=== PATIENT | female | born 1960 | race Caucasian/White ===

== ENCOUNTER 2020-11-25 10:03 | Emergency (ER) | payer OTHER ==
[2020-11-25] MEDS ORDERED: Sodium Chloride 0.9% 10 ML Syringe FLUSH PRN ×2 (10:58→11:34)
[2020-11-25] MEDS ORDERED: Ondansetron 4 MG/2 ML SDV IVPUSH ONE (10:59)
[2020-11-25] MEDS ORDERED: Lactated Ringers 1,000 ML IV SCH (11:00)
--- NOTE | 2020-11-25 11:03 | EDM.PDOC ---
ED HPI GENERAL MEDICAL PROBLEM - General Chief Complaint: Genitourinary Problem Stated Complaint: UTI Time Seen by Provider: 11/25/20 10:51 Source of Information: Reports: Patient, Provider, RN Notes Reviewed History Limitations: Reports: No Limitations - History of Present Illness INITIAL COMMENTS - FREE TEXT/NARRATIVE: 60-year-old female sent from [facility] in [place] presents emergency department day with increasing abdominal pain. She has a complex history of recent urinary tract infection over the last month initially diagnosed with UTI started on amoxicillin 7-day course while in [place]. Did not get good resolution with that was started on ciprofloxacin 10-day course. [place]. She states during course of ciprofloxacin started developing severe diarrhea reported to clinic request to be tested for C. difficile which she was positive started on vancomycin she is almost completed the course of vancomycin 2 doses remaining. Over the last 24 hours her urinary symptoms have increased as well as the diarrhea. Went to the clinic today urinalysis at that time was positive for nitrates suspicious for ongoing urinary tract infection. She is also developed abdominal pain right upper quadrant right flank area mainly over the last 24 hours does have nausea no fevers no shortness of breath or chest pain - Related Data Allergies Allergy/AdvReac Type Severity Reaction Status Date / Time codeine Allergy Nausea and Verified 11/25/20 10:28 Vomiting Home Meds: Home Meds Lactobacillus 3/Fos/Pantethine [Probiotic & Acidophilus] 1 tab PO DAILY 11/25/20 [History] Omeprazole 1 tab PO DAILY 11/25/20 [History] PARoxetine [Paxil] 1 tab PO DAILY 11/25/20 [History] Pumpkin Seed Extract/Soy Germ [Azo Bladder Control Capsule] 1 tab PO DAILY 11/25/20 [History] Vancomycin [Vancomycin Cap] 1 tab PO QID 11/25/20 [History] Past Medical History Genitourinary History: Reports: UTI, Recurrent Psychiatric History: Reports: Anxiety - Past Surgical History Female Surgical History: Reports: Hysterectomy Social & Family History - Tobacco Use Tobacco Use Status *Q: Never Tobacco User ED ROS GENERAL - Review of Systems Review Of Systems: See Below Constitutional: Reports: No Symptoms HEENT: Reports: No Symptoms Respiratory: Reports: No Symptoms Cardiovascular: Reports: No Symptoms GI/Abdominal: Reports: Abdominal Pain, Diarrhea, Nausea, Vomiting : Reports: Frequency ED EXAM, GI/ABD - Physical Exam Exam: See Below Exam Limited By: No Limitations General Appearance: Alert, WD/WN, No Apparent Distress Respiratory/Chest: No Respiratory Distress, Lungs Clear, Normal Breath Sounds, No Accessory Muscle Use, Chest Non-Tender Cardiovascular: Regular Rate, Rhythm, No Murmur GI/Abdominal Exam: Soft, Tender (Right upper quadrant), Abnormal Bowel Sounds (Decreased) Course - Vital Signs Last Recorded V/S: Last Vital Signs Temp 98.4 F 11/25/20 10:42 Pulse 69 11/25/20 10:42 Resp 14 11/25/20 10:42 BP 122/69 11/25/20 10:42 Pulse Ox 98 11/25/20 10:42 - Orders/Labs/Meds Orders: Active Orders 24 hr Category Date Time Status Peripheral IV Care [RC] . DIRECTED Care 11/25/20 10:59 Active Lactated Ringers [Ringers, Lactated] 1,000 ml Med 11/25/20 11:00 Active IV ASDIRECTED Sodium Chloride 0.9% [Saline Flush] Med 11/25/20 10:58 Active 10 ml FLUSH ASDIRECTED PRN Sodium Chloride 0.9% [Saline Flush] Med 11/25/20 11:34 Active 10 ml FLUSH ONETIME PRN cefTRIAXone [Rocephin] 1 gm Med 11/25/20 14:14 Ordered Sodium Chloride 0.9% [Normal Saline] 50 ml IV ONETIME Peripheral IV Insertion Adult [OM.PC] Urgent Oth 11/25/20 10:58 Ordered Medication Orders Lactated Ringer's (Ringers, Lactated) 1,000 mls @ 999 mls/hr IV ASDIRECTED TALI Last Admin: 11/25/20 11:32 Dose: 999 mls/hr Documented by: LILIA Ceftriaxone Sodium 1 gm/ (Sodium Chloride) 50 mls @ 100 mls/hr IV ONETIME ONE Stop: 11/25/20 14:43 Sodium Chloride (Sodium Chloride 0.9% 10 Ml Syringe) 10 ml FLUSH ASDIRECTED PRN PRN Reason: Keep Vein Open Last Admin: 11/25/20 11:33 Dose: 10 ml Documented by: LILIA Sodium Chloride (Sodium Chloride 0.9% 10 Ml Syringe) 10 ml FLUSH ONETIME PRN PRN Reason: PER RADIOLOGY PROTOCOL Last Admin: 11/25/20 11:52 Dose: 10 ml Documented by: MATHEW Labs: Laboratory Tests 11/25/20 11/25/20 11/25/20 Range/Units 11:05 11:05 11:05 WBC 18.4 H (4.5-11.0) K/uL RBC 4.32 (3.30-5.50) M/uL Hgb 12.7 (12.0-15.0) g/dL Hct 38.4 (36.0-48.0) % MCV 89 (80-98) fL MCH 29 (27-31) pg MCHC 33 (32-36) % Plt Count 406 H (150-400) K/uL Neut % (Auto) 89 H (36-66) % Lymph % (Auto) 5 L (24-44) % [place] % (Auto) 6 (2-6) % Eos % (Auto) 0 L (2-4) % Baso % (Auto) 0 (0-1) % Sodium 137 L (140-148) mmol/L Potassium 4.4 (3.6-5.2) mmol/L Chloride 100 (100-108) mmol/L Carbon Dioxide 22 (21-32) mmol/L Anion Gap 19.4 H (5.0-14.0) mmol/L BUN 17 (7-18) mg/dL Creatinine 1.1 H (0.6-1.0) mg/dL Est Cr Clr Drug Dosing 50.16 mL/min Estimated GFR (MDRD) 51 L (>60) Glucose 137 H (74-106) mg/dL Lactic Acid 1.5 (0.4-2.0) mmol/L Calcium 9.3 (8.5-10.1) mg/dL Total Bilirubin 0.6 (0.2-1.0) mg/dL AST 15 (15-37) U/L ALT 25 (12-78) U/L Alkaline Phosphatase 76 (46-116) U/L Troponin I < 0.017 (0.000-0.056) ng/mL Total Protein 6.9 (6.4-8.2) g/dL Albumin 3.8 (3.4-5.0) g/dL Globulin 3.1 (2.3-3.5) g/dL Albumin/Globulin Ratio 1.2 (1.2-2.2) Lipase 107 (73-393) U/L Meds: Medications Generic Name Dose Route Start Last Admin Trade Name Freq PRN Reason Stop Dose Admin Lactated Ringer's 1,000 mls @ 999 mls/hr 11/25/20 11:00 11/25/20 11:32 Ringers, Lactated IV 999 mls/hr ASDIRECTED TALI Administration Ceftriaxone Sodium 1 gm/ 50 mls @ 100 mls/hr 11/25/20 14:14 Sodium Chloride IV 11/25/20 14:43 ONETIME ONE Sodium Chloride 10 ml 11/25/20 10:58 11/25/20 11:33 Sodium Chloride 0.9% 10 Ml Syringe FLUSH 10 ml ASDIRECTED PRN Administration Keep Vein Open Sodium Chloride 10 ml 11/25/20 11:34 11/25/20 11:52 Sodium Chloride 0.9% 10 Ml Syringe FLUSH 10 ml ONETIME PRN Administration PER RADIOLOGY PROTOCOL Discontinued Medications Generic Name Dose Route Start Last Admin Trade Name Freq PRN Reason Stop Dose Admin Sodium Chloride 70 mls @ 3 mls/sec 11/25/20 11:34 11/25/20 11:52 Normal Saline IV 11/25/20 11:35 3 mls/sec ONETIME ONE Administration Iopamidol 90 ml 11/25/20 11:34 11/25/20 11:53 Iopamidol 612 Mg/Ml 100 Ml Bottle IV 90 ml . DIRECTED PRN Administration RADIOLOGY EXAM Ondansetron HCl 4 mg 11/25/20 10:59 11/25/20 11:33 Ondansetron 4 Mg/2 Ml Sdv IVPUSH 11/25/20 11:00 4 mg ONETIME ONE Administration Departure - Departure Time of Disposition: 14:26 Disposition: DC/Tfer to Acute Hospital 02 Condition: Fair Clinical Impression: Hydronephrosis of right kidney - Discharge Information Instructions: Hydronephrosis Referrals: PCP,None [Primary Care Provider] - Forms: ED Department Discharge Sepsis Event Note (ED) - Evaluation Sepsis Screening Result: No Definite Risk - Focused Exam Vital Signs: Vital Signs Temp Pulse Resp BP Pulse Ox 11/25/20 10:42 98.4 F 69 14 122/69 98 - My Orders Last 24 Hours: My Active Orders 11/25/20 10:58 Sodium Chloride 0.9% [Saline Flush] 10 ml FLUSH ASDIRECTED PRN Peripheral IV Insertion Adult [OM.PC] Urgent 11/25/20 10:59 Peripheral IV Care [RC] . DIRECTED 11/25/20 11:00 Lactated Ringers [Ringers, Lactated] 1,000 ml IV ASDIRECTED 11/25/20 11:34 Sodium Chloride 0.9% [Saline Flush] 10 ml FLUSH ONETIME PRN 11/25/20 14:14 cefTRIAXone [Rocephin] 1 gm Sodium Chloride 0.9% [Normal Saline] 50 ml IV ONETIME - Assessment/Plan Last 24 Hours: My Active Orders 11/25/20 10:58 Sodium Chloride 0.9% [Saline Flush] 10 ml FLUSH ASDIRECTED PRN Peripheral IV Insertion Adult [OM.PC] Urgent 11/25/20 10:59 Peripheral IV Care [RC] . DIRECTED 11/25/20 11:00 Lactated Ringers [Ringers, Lactated] 1,000 ml IV ASDIRECTED 11/25/20 11:34 Sodium Chloride 0.9% [Saline Flush] 10 ml FLUSH ONETIME PRN 11/25/20 14:14 cefTRIAXone [Rocephin] 1 gm Sodium Chloride 0.9% [Normal Saline] 50 ml IV ONETIME Plan: Assessment Acuity = acute Site and laterality = right hydronephrosis with urinary tract infection Etiology = unknown Manifestations = abdominal pain Location of injury = Home Lab values = WBC elevated 18.4 consistent leukocytosis, creatinine elevated 1.1 consistent with acute renal failure stage G3 a lactic acid normal 1.5 CT scan describes hydronephrosis with the largest diameter 11 x 7.1 cm Plan Call discussed case with urology Dr. Flower [facility] at [address] Pablo hospitalist at [facility] kindly excepted the patient in transport she will be given 1 g Rocephin here transferred via EMS services plan for surgical intervention This note was dictated using [employer] voice recognition software please call with any questions on syntax or grammar.
[2020-11-25] MEDS ORDERED: Iopamidol 612 MG/ML 100 ML Bottle IV PRN (11:34)
--- NOTE | 2020-11-25 12:21 | CT ---
Abdomen Pelvis w Cont CLINICAL HISTORY: Right upper quadrant pain COMPARISON: None. TECHNIQUE: Transverse scans were obtained from the base of the lungs to the pubic symphysis following oral contrast and IV infusion of contrast.Auto dosage reduction and iterative reconstructiontechniques employed. FINDINGS: The lung bases are clear.. There is a moderate-sized hiatal hernia The liver is free of mass. The gallbladder is displaced anterior laterally by a large cystic focus extending from the right renal pelvis. This appears to be hydronephrosis with a very large extrarenal pelvis. It measures 9.8 x 7.1 x 10.9 cm. There is a small curvilinear fluid collection in the right posterior medial perinephric space. There is some mild urothelial enhancement. The bladder is moderately thick walled. There is some urothelial enhancement suggesting moderate cystitis The proximal right ureter is not identified. The left kidney is free of mass or hydronephrosis. Left ureter has normal course and contour. The spleen has normal size and shape. The pancreas shows no mass or inflammatory change. The adrenal glands appear normal bilaterally . The aorta has a normal contour. Abdominal pelvic fat planes and low pelvic side brand are well demarcated. IMPRESSION: Moderate to severe right hydronephrosis and significant dilatation of the right extrarenal pelvis. 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 Chronology is uncertain. There is some smooth urothelial enhancement. Moderately thickened and trabeculated bladder with urothelial enhancement diffusely suggesting a chronic cystitis. Left kidney has a normal appearance
[2020-11-25] MEDS ORDERED: cefTRIAXone 1 GM in Sodium Chloride 0.9% 50 ML IV ONE (14:14)
[2020-11-25] MEDS ORDERED: fentaNYL 100 MCG/2 ML SDV IVPUSH ONE (14:59)
== END 2020-11-25 15:29 ==
LOC: JP.ED 10:03
DX: N13.30 Unspecified hydronephrosis (principal); Z88.5 Allergy status to narcotic agent; Z79.899 Other long term (current) drug therapy
CPT/HCPCS: 36415; 74177; 80053; 83605; 83690; 84484; 85025; 96365; 99285; J0696; J2405; J7120; Q9967; 96375